=== PATIENT | male | born 1950 | race Caucasian/White ===

== ENCOUNTER 2023-01-20 20:44 | Inpatient (IN) | payer MEDICARE, OTHER ==
[~2023-01-20] VITALS: Ht 175.3 cm; Wt 135.7 kg
[~2023-01-20 20:44] MED LIST: ETOMIDATE 20 MG/10 ML VIAL ONE; SUCCINYLCHOLINE CHLORIDE 200 MG/10 ML VIAL ONE
[2023-01-20] MEDS ORDERED: IPRATROPIUM BROMIDE 0.5 MG/2.5 ML NEBU NEB ONE (21:00)
[2023-01-20] MEDS ORDERED: ALBUTEROL SULFATE 2.5 MG/3 ML NEBU ONE (21:00)
[2023-01-20] MEDS ORDERED: ALBUTEROL SULFATE 2.5 MG/3 ML NEBU NEB ONE (21:00)
[2023-01-20] MEDS ORDERED: IPRATROPIUM BROMIDE 0.5 MG/2.5 ML NEBU ONE (21:00)
[2023-01-20 21:13] LABS: ABG BASE EXCESS 11.1 mmol/L; ABG HCO3 40.3 mmol/L; ABG PCO2 76.2 mmHg (35.0-45.0); ABG PH 7.341 (7.350-7.450); ABG PO2 70.7 mmHg (75.0-100.0); ABG SITE RIGHT RADIAL; ABG TOTAL HEMOGLOBIN 14.2 G/dL (13.5-18.0); MetHb 0.2 % (0.0-1.5); O2Hb 92.7 % (94.0-97.0)
[2023-01-20 21:19] LABS: MEAN CORPUSCULAR HEMOGLOBIN 31.4 uug (23.8-33.4); MEAN CORPUSCULAR VOLUME 99.8 fL (73.0-96.2); PLATELET COUNT (AUTO) 203 K/uL (152-348)
[2023-01-20 21:25] LABS: CHLORIDE 102 mmol/L (98-107); CREATININE 0.8 mg/dL (0.6-1.3); GLUCOSE 86 mg/dL (74-106); POTASSIUM 4.3 mmol/L (3.5-5.1); UREA NITROGEN, BLOOD 17 mg/dL (7-18)
[2023-01-20 21:30] LABS: CARBON DIOXIDE 46 mmol/L (21-32)
--- NOTE | 2023-01-20 21:31 | NUR ---
Chest xray at bedside.
[2023-01-20 21:39] LABS: ALANINE AMINOTRANSFERASE 14 U/L (16-63); ALKALINE PHOSPHATASE 102 U/L (50-136); ASPARTATE AMINOTRANSFERASE 5 U/L (15-37); BILIRUBIN,DIRECT 0.2 mg/dL (0.0-0.2); BILIRUBIN,TOTAL 0.4 mg/dL (0.2-1.0); TOTAL PROTEIN, SERUM 5.9 g/dL (6.4-8.2)
[2023-01-20] MEDS ORDERED: PREG100C PO (21:53)
[2023-01-20] MEDS ORDERED: LANS30CA54 PO (21:53)
[2023-01-20] MEDS ORDERED: ENOX40DI SQ (21:53)
[2023-01-20] MEDS ORDERED: AMIO200T5 PO (21:53)
[2023-01-20] MEDS ORDERED: ASCO500C18 PO (21:53)
[2023-01-20] MEDS ORDERED: ASPI81TA31 PO (21:53)
[2023-01-20] MEDS ORDERED: DOCU250C14 PO (21:53)
[2023-01-20] MEDS ORDERED: ATEN25TA PO (21:53)
[2023-01-20] MEDS ORDERED: ESCI-9 PO (21:53)
[2023-01-20] MEDS ORDERED: NITR0.4T SL (21:53)
[2023-01-20] MEDS ORDERED: ZINC220T4 PO (21:53)
[2023-01-20] MEDS ORDERED: AMIN30LI66 PO (21:53)
[2023-01-20] MEDS ORDERED: OXYC10TA49 PO (21:53)
[2023-01-20] MEDS ORDERED: MULT-213 PO (21:53)
[2023-01-20] MEDS ORDERED: OXYC15TA2 PO (21:53)
[2023-01-20] MEDS ORDERED: CLON0.5T4 PO (21:53)
[2023-01-20] MEDS ORDERED: DILT30TA2 PO (21:53)
[2023-01-20] MEDS ORDERED: RISP0.5T65 PO (21:53)
[2023-01-20] MEDS ORDERED: ACET325T53 PO (21:53)
[2023-01-20] MEDS ORDERED: POLY250017 PO (21:53)
[2023-01-20] MEDS ORDERED: ALBU8.5H8 IH (21:53)
[2023-01-20] MEDS ORDERED: FUROSEMIDE 40 MG/4 ML VIAL IV ONE (22:00)
[2023-01-20] MEDS: MAGNESIUM SULFATE/D5W 100 ML IV SCH ×2 (22:05→23:00)
--- NOTE | 2023-01-20 22:12 | NUR ---
Respiratory therapist at bedside.
[2023-01-20] MEDS ORDERED: FUROSEMIDE 40 MG/4 ML VIAL ONE (22:14)
[2023-01-20] MEDS ORDERED: FUROSEMIDE 20 MG/2 ML VIAL ONE (22:14)
[2023-01-20] MEDS ORDERED: MAGNESIUM SULFATE/D5W 100 ML ONE (22:14)
[2023-01-20] MEDS ORDERED: ONDANSETRON 4 MG/2 ML VIAL IV ONE (22:30)
[2023-01-20] MEDS ORDERED: MORPHINE SULFATE 4 MG/1 ML DISP.SYRIN IV ONE (22:30)
[2023-01-20] MEDS ORDERED: MAGNESIUM SULFATE/D5W 200 ML ONE (22:39)
[2023-01-20] MEDS ORDERED: MORPHINE SULFATE 2 MG/1 ML DISP.SYRIN ONE (22:40)
[2023-01-20] MEDS ORDERED: MORPHINE SULFATE 4 MG/1 ML DISP.SYRIN ONE (22:40)
--- NOTE | 2023-01-20 22:57 | NUR ---
Dr. Taylor ordered Morphine 6mg, ordered cancelled due to o2 saturation of 80%. Morphine 6mg IV wasted with witness geophysics professor Adrian.
[2023-01-20 23:06] LABS: ABG BASE EXCESS 14.9 mmol/L; ABG PCO2 105.4 mmHg (35.0-45.0); ABG PH 7.267 (7.350-7.450); ABG PO2 43.3 mmHg (75.0-100.0); ABG SITE RIGHT RADIAL; MetHb 0.2 % (0.0-1.5); O2Hb 73.4 % (94.0-97.0); VENT MODE BIPAP
--- NOTE | 2023-01-20 23:10 | NUR ---
Patient O2 saturation 70-80% on BiPAP, Dr. Taylor notified.
[2023-01-20] MEDS ORDERED: SUCCINYLCHOLINE CHLORIDE 200 MG/10 ML VIAL IV ONE (23:15)
[2023-01-20] MEDS ORDERED: ETOMIDATE 20 MG/10 ML VIAL IV ONE (23:15)
--- NOTE | 2023-01-20 23:15 | NUR ---
Patient intubated by Dr. Taylor. Patient given Succinylcholine 100mg IV at 23:15, followed by Etomidate 20 mg IV @ 23:16.
--- NOTE | 2023-01-20 23:20 | NUR ---
Performed skin assessment noted peripheral edema to bilateral lower extremities, blisters to RLE and wounds with dressing to LLE.
[2023-01-20] MEDS ORDERED: ACETAMINOPHEN 325 MG TABLET-SA PATIENTS-PAIN ONLY PO PRN (23:30)
[2023-01-20] MEDS ORDERED: NITROGLYCERIN 0.4 MG/TAB BOTTLE SL PRN (23:30)
[2023-01-20] MEDS ORDERED: ONDANSETRON 4 MG/2 ML VIAL IV PRN (23:30)
[2023-01-20] MEDS ORDERED: ACETAMINOPHEN 325 MG TABLET PO PRN (23:30)
--- NOTE | 2023-01-20 23:35 | NUR ---
Called Dr. Thorpe to notify of patient's change in condition due to hypoxemia and intubation by Dr. Taylor. Per Dr. Thorpe, he will be coming in the hospital to see patient.
--- NOTE | 2023-01-20 23:35 | NUR ---
Per Statistical Machine Servicer Marcela, currently no CCU avaliable beds. Patient to remain in ER until the morning. ER charting will be done.
[2023-01-21] VITALS (13 sets, daily range): BP systolic 79–144; BP diastolic 52–85
[2023-01-21] MEDS ORDERED: PROPOFOL 200 MG/20 ML BOTTLE IV ONE
[2023-01-21] MEDS ORDERED: MORPHINE SULFATE 4 MG/1 ML DISP.SYRIN IV ONE
[2023-01-21] MEDS ORDERED: PROPOFOL 100 ML IV PRN
[2023-01-21] MEDS: MAGNESIUM SULFATE/D5W 100 ML IV SCH
[2023-01-21] MEDS ORDERED: PROPOFOL 200 MG/20 ML BOTTLE ONE (00:02)
[2023-01-21] MEDS ORDERED: MORPHINE SULFATE 4 MG/1 ML DISP.SYRIN ONE (00:02)
[2023-01-21] MEDS ORDERED: MORPHINE SULFATE 2 MG/1 ML DISP.SYRIN ONE (00:03)
[2023-01-21] MEDS ORDERED: PROPOFOL 100 ML ONE ×2 (00:29→08:12)
[2023-01-21 00:38] LABS: ABG BASE EXCESS 13.5 mmol/L; ABG HCO3 37.3 mmol/L; ABG PH 7.556 (7.350-7.450); ABG PO2 79.7 mmHg (75.0-100.0); ABG SITE RIGHT RADIAL; ABG TOTAL HEMOGLOBIN 13.8 G/dL (13.5-18.0); COHb 1.1 % (0.5-1.5); O2Hb 96.3 % (94.0-97.0); VENT MODE VENT - A/C; VT, ABG 600 mL
--- NOTE | 2023-01-21 00:40 | NUR ---
Driprivan drip per Dr. Taylor's order for agitation and patient attempting to remove ET tube. Drip started at 00:40 infusing to right AC @ 5mcg/kg/min
--- NOTE | 2023-01-21 02:20 | NUR ---
Called Dr. Sharma for panel call. Waiting for call back.
--- NOTE | 2023-01-21 03:00 | NUR ---
Called [facility] for 2nd attempt to reach Dr. Moore strategic sourcing consultant. No answer.
--- NOTE | 2023-01-21 04:05 | NUR ---
Spoke with Mandy AMARAL regarding patient's hypotension, per Mandy MOBILE MANAGER given telephone order with readback order to start parting on Levophed drip.
[2023-01-21] MEDS ORDERED: NOREPINEPHRINE BITARTRATE 4 MG/4 ML VIAL IV ONE ×2 (04:15→14:26)
[2023-01-21] MEDS ORDERED: NOREPINEPHRINE BITARTRATE 8 MG in IV DEXTROSE 5% 250 ML IV ONE (04:15)
--- NOTE | 2023-01-21 04:15 | NUR ---
Levophed 8mg IV drip reconstituted and placed at bedside. Patient's current vital signs SBP>90.
[2023-01-21] MEDS ORDERED: OXYCODONE HCL 5 MG TABLET PO PRN (05:30)
[2023-01-21] MEDS ORDERED: NOREPINEPHRINE BITARTRATE 8 MG in IV NORMAL SALINE 242 ML IV PRN (05:40)
--- NOTE | 2023-01-21 05:40 | NUR ---
Levophed 8mg IV drip started infusing at 0.1mcg/kg/min to 20G to right AC per Mandy BEATER AND PULPER FEEDER's order. Patient's BP: 57/27
[2023-01-21] MEDS ORDERED: ALBUTEROL SULFATE 2.5 MG/3 ML NEBU IH PRN (05:45)
--- NOTE | 2023-01-21 05:45 | NUR ---
Levophed 8mg drip stopped BP 137/51
--- NOTE | 2023-01-21 06:15 | NUR ---
Darya meneses in EDM - 01/21/23 at 0616 by BRYANNA Levophed 8mg IV drip started infusing at 0.1mcg/kg/min to 20G to right AC per Mandy AMARAL's order. Patient's BP: 57/27
--- NOTE | 2023-01-21 06:19 | NUR ---
Levophed 8mg drip re-started at 0.1mcg/kg/min for BP 82/52 HR 97.
--- NOTE | 2023-01-21 06:54 | NUR ---
Patient had large yellow void in brief.
[2023-01-21] MEDS ORDERED: PANTOPRAZOLE SODIUM 40 MG TABLET.DR PO SCH (07:00)
--- NOTE | 2023-01-21 07:18 | NUR ---
Called CCU to give report, RN not avalaible. Waiting for call back.
--- NOTE | 2023-01-21 07:28 | NUR ---
Levophed 8mg infusing to right act @ 0.08mcg/kg/min and Propofol 20mcg/kg/min to left AC
[2023-01-21 07:36] LABS: HEMATOCRIT 42.6 % (36.7-47.1); MEAN CORPUSCULAR HEMOGLOBIN 31.2 uug (23.8-33.4); MEAN CORPUSCULAR VOLUME 98.1 fL (73.0-96.2); PLATELET COUNT (AUTO) 253 K/uL (152-348)
[2023-01-21] MEDS ORDERED: MISCELLANEOUS MED XX PRN (08:00)
[2023-01-21] MEDS ORDERED: PROTEIN SUPPLEMENT (PROSTAT) 30 ML LIQUID PO SCH (08:00)
--- NOTE | 2023-01-21 08:00 | NUR ---
REPORT RECEIVEXCD FROM NIGHT RN. BEDSIDE REPORT PERFORMED SKIN ASSESSED PT FOUND TO HAVE EXTREME PEDAL AND LOWER EXT EDEMEA WITH ECCYCHOMOSIS . PT S/P LEFT LOER LEG FRACTURE. PT FROM A SKILLED FACILITY. PT ON VENT AND [id number] ON DIPROVAN. WOFOESPERANZA,RN PERFORMED SEDATION VACATION PT IN BILATERAL SOFT WRIST RESTAINTS ELIZABETH CHECK [id number] PT ABLE TO LIFT RT UPPER ARM DURING ASSESSMENT. NO COMMANDS FOLLOWED. PT WITH MULTIPKE WOUNDS SKIN CONSULT PKLACED. PT ALSO IN LEVOPHED 8MG FOR HEMODYNAMIC STABILITY PT TITRATED ACCORDINGLY TO MAP AND SBP PARAMETERS
[2023-01-21 08:07] LABS: BILIRUBIN,TOTAL 0.9 mg/dL (0.2-1.0); CREATININE 0.8 mg/dL (0.6-1.3); MAGNESIUM 2.1 mg/dL (1.8-2.4); PHOSPHOROUS 1.3 mg/dL (2.5-4.9); POTASSIUM 4.1 mmol/L (3.5-5.1); TOTAL PROTEIN, SERUM 5.5 g/dL (6.4-8.2)
--- NOTE | 2023-01-21 08:07 | NUR ---
Report given to Francesca BEE
--- NOTE | 2023-01-21 08:11 | NUR ---
ER nurse notes 0811am: 1ST CONTACT WITH PATIENT: He is sedated w/ Propofol drip@15mcg/kg/min, ETT to ventilator (parameters:AK=002, BiK6=161%, rate=18/min, PEEP=5),+ Norepi drip@0.08mcg/kg/min, still pending PICC line insertion (by PICC nurse). RN watch manufacturing supervisor was notified (by previous shift staff nurse Sheree) re: contact the PICC line nurse. This patient has an ICU/CCU status, pending available CCU/ICU bed and nurse in the 2nd floor. RN watch manufacturing supervisor Hyd said that an CCU/ICU nurse Celeste is coming to ER to take care of this patient. Previous rn procedure RN Sheree said that she will also give nursing SBAR to incoming CCU/ICU nurse.
[2023-01-21 08:18] LABS: THYROID STIMULATING HORMONE 1.1 mIU/mL (0.358-3.740)
[2023-01-21] MEDS ORDERED: NEUTRA PHOS PACKET NG ONE (08:45)
[2023-01-21] MEDS ORDERED: MEROPENEM 1 G in IV NORMAL SALINE 100 ML IV SCH ×2 (08:45→09:00)
[2023-01-21] MEDS ORDERED: POTASSIUM PHOSPHATE MM 15 MMOL in IV NORMAL SALINE 250 ML IV ONE (08:45)
[2023-01-21] MEDS ORDERED: MULTIVITAMINS,THERAPEUTIC TABLET PO SCH (09:00)
[2023-01-21] MEDS ORDERED: risperiDONE 0.5 MG TABLET PO SCH (09:00)
[2023-01-21] MEDS ORDERED: APIXABAN 5 MG TABLET PO SCH ×2 (09:00→21:00)
[2023-01-21] MEDS ORDERED: FUROSEMIDE 40 MG/4 ML VIAL IV SCH ×2 (09:00)
[2023-01-21] MEDS ORDERED: MIRALAX 17 GM POWD.PACK PO SCH (09:00)
[2023-01-21] MEDS ORDERED: DILTIAZEM HCL 60 MG TABLET PO SCH (09:00)
[2023-01-21] MEDS ORDERED: PREGABALIN 100 MG CAPSULE PO SCH (09:00)
[2023-01-21] MEDS ORDERED: ASCORBIC ACID 500 MG TABLET PO SCH (09:00)
[2023-01-21] MEDS ORDERED: DOCUSATE SODIUM 250 MG CAPSULE PO SCH ×2 (09:00→21:00)
[2023-01-21] MEDS ORDERED: ENOXAPARIN SODIUM 40 MG/0.4 ML DISP.SYRIN SQ SCH (09:00)
[2023-01-21] MEDS ORDERED: ESCITALOPRAM OXALATE 10 MG TABLET PO SCH (09:00)
[2023-01-21] MEDS ORDERED: ASPIRIN 81 MG TAB.CHEW PO SCH (09:00)
[2023-01-21] MEDS ORDERED: risperiDONE 0.25 MG TABLET PO SCH (09:00)
[2023-01-21] MEDS ORDERED: AMIODARONE HCL 200 MG TABLET PO SCH (09:00)
[2023-01-21] MEDS: ALBUMIN HUMAN 25% 100 ML IV SCH ×2 (09:15→12:00)
[2023-01-21] MEDS ORDERED: FUROSEMIDE 40 MG/4 ML VIAL ONE (11:11)
[2023-01-21] MEDS ORDERED: ALTEPLASE 100 MG/100 ML VIAL IV ONE (14:19)
--- NOTE | 2023-01-21 14:30 | NUR ---
pt departing home pt awake on vent with mild sedation. photo of deedee being tasken. during the photo pt stopped [id number] code blue acitivated. all emergent responders on site. please see [place] sup code sheet for further documenration
[2023-01-21] MEDS ORDERED: MAGNESIUM SULFATE 1 GM/2 ML VIAL IM ONE (15:25)
[2023-01-21] MEDS ORDERED: EPINEPHRINE 1:10,000 1 MG/10 ML DISP.SYRIN IV ONE ×2 (15:25)
[2023-01-21 15:38] LABS: HEMATOCRIT 42.7 % (36.7-47.1); MEAN CORPUSCULAR HEMOGLOBIN 30.9 uug (23.8-33.4); MEAN CORPUSCULAR VOLUME 99.9 fL (73.0-96.2); PLATELET COUNT (AUTO) 234 K/uL (152-348)
[2023-01-21 15:42] LABS: CARBON DIOXIDE 35 mmol/L (21-32); CHLORIDE 103 mmol/L (98-107); CREATININE 1.1 mg/dL (0.6-1.3); GLUCOSE 119 mg/dL (74-106); POTASSIUM 3.4 mmol/L (3.5-5.1); UREA NITROGEN, BLOOD 18 mg/dL (7-18)
[2023-01-21 15:50] LABS: ALANINE AMINOTRANSFERASE 33 U/L (16-63); ALKALINE PHOSPHATASE 102 U/L (50-136); ASPARTATE AMINOTRANSFERASE 41 U/L (15-37); BILIRUBIN,TOTAL 0.8 mg/dL (0.2-1.0); TOTAL PROTEIN, SERUM 4.9 g/dL (6.4-8.2)
[2023-01-21] MEDS ORDERED: CLONAZEPAM 0.5 MG TABLET PO SCH ×2 (21:00)
== END 2023-01-21 15:26 | DRG 208 ==
LOC: ER 20:46 → TRANSITION 22:22
PROVIDERS: ADMIT Internal Medicine; ATTEND Internal Medicine
PROC: 5A1935Z Respiratory Ventilation, Less than 24 Consecutive Hours (ICD-10-PCS; principal; 2023-01-20)
PROC: 0BH17EZ Insertion of Endotracheal Airway into Trachea, Via Natural or Artificial Opening (ICD-10-PCS; 2023-01-20)
PROC: 5A12012 Performance of Cardiac Output, Single, Manual (ICD-10-PCS; 2023-01-21)
PROC: 3E03317 Introduction of Other Thrombolytic into Peripheral Vein, Percutaneous Approach (ICD-10-PCS; 2023-01-21)
PROC: 06HY33Z Insertion of Infusion Device into Lower Vein, Percutaneous Approach (ICD-10-PCS; 2023-01-21)
PROC: 0W9B30Z Drainage of Left Pleural Cavity with Drainage Device, Percutaneous Approach (ICD-10-PCS; 2023-01-21)
DX: J96.01 Acute respiratory failure with hypoxia (principal); I50.33 Acute on chronic diastolic (congestive) heart failure; E43 Unspecified severe protein-calorie malnutrition; G92.8 Other toxic encephalopathy; I82.402 Acute embolism and thrombosis of unspecified deep veins of left lower extremity; I48.20 Chronic atrial fibrillation, unspecified; Z68.41 Body mass index [BMI] 40.0-44.9, adult; D68.59 Other primary thrombophilia; R57.9 Shock, unspecified; E87.29 Other acidosis; I11.0 Hypertensive heart disease with heart failure; J96.02 Acute respiratory failure with hypercapnia; E66.01 Morbid (severe) obesity due to excess calories; K21.9 Gastro-esophageal reflux disease without esophagitis; L80 Vitiligo; E88.81 Metabolic syndrome and other insulin resistance; G47.33 Obstructive sleep apnea (adult) (pediatric); Z74.09 Other reduced mobility; E11.40 Type 2 diabetes mellitus with diabetic neuropathy, unspecified; E83.42 Hypomagnesemia; E11.620 Type 2 diabetes mellitus with diabetic dermatitis; S82.202D Unspecified fracture of shaft of left tibia, subsequent encounter for closed fracture with routine healing; X58.XXXD Exposure to other specified factors, subsequent encounter; M81.0 Age-related osteoporosis without current pathological fracture; Z79.899 Other long term (current) drug therapy; Z95.1 Presence of aortocoronary bypass graft; F43.10 Post-traumatic stress disorder, unspecified; I25.10 Atherosclerotic heart disease of native coronary artery without angina pectoris
CPT/HCPCS: 36415; 36556; 36600; 71045; 83550; 83605; 83735; 84100; 84443; 84484; 85025; 87040; 92950; 93005; 93307; 94003; A4663; G0378; J0171; J0330; J1940; J2185; J2270; J2405; J2997; J3475; J3490; J3590; J7040; J7050